=== PATIENT | male | born 1950 | race Two or more races ===

== ENCOUNTER 2021-10-08 17:35 | Emergency (ER) | payer OTHER ==
[~2021-10-08] VITALS: Ht 160 cm; Wt 81.6 kg
[2021-10-08] MEDS ORDERED: LISINOPRIL 10 MG TAB PO ONE (19:00)
[2021-10-08] MEDS ORDERED: LISI-716 PO (19:00)
[2021-10-08 20:15] VITALS: BP 160/85
== END 2021-10-08 20:24 | disposition home or self-care (01) ==
LOC: ER 17:35
DX: R42 Dizziness and giddiness (principal); I10 Essential (primary) hypertension; Z79.899 Other long term (current) drug therapy
CPT/HCPCS: 93005